=== PATIENT | male | born 1950 | race Hispanic/Latino ===

== ENCOUNTER 2024-12-02 09:51 | Day surgery (SDC) | payer MEDICARE ==
[2024-11-26 11:35] LABS: BASOPHILS % 0.4 % (0.0-1.0); EOSINOPHILS % 4.1 % (0.0-6.0); LYMPHOCYTES % 28.1 % (18.0-39.1); MONOCYTES % 8.0 % (4.4-11.3); NEUTROPHILS % 59.1 % (38.7-80.0); RED CELL DISTRIBUTION WIDTH 13.5 % (11.7-14.4)
[2024-11-26 12:26] LABS: CHOL/HDL RATIO 2.9 (3.9-4.7); EST GLOMERULAR FILTRATION RATE 68.0 ML/MIN (>=60); LDL CHOLESTEROL 33.0 MG/DL (60-130)
[~2024-12-02] VITALS: Ht 165.1 cm; Wt 68.3 kg
[2024-12-02] VITALS (17 sets, daily range): BP systolic 108–136; BP diastolic 58–84; PULSE 59–71; RESP 11–22; TEMP 97.7; O2SAT 96–100
[~2024-12-02 09:51] MED LIST: ASPIRIN81 MG PO; ATORVASTATIN CA20 MG PO; CLOPIDOGREL75 MG PO; LIPITOR20 MG PO
[2024-12-02] MEDS: SODIUM CHLORIDE 0.9% 1000ML 1,000 ML ONE (11:00)
[2024-12-02] MEDS: DIPHENHYDRAMINE HCL 25 MG CAP ONE (12:18)
[2024-12-02] MEDS: ALPRAZOLAM 0.5 MG TAB ONE (12:18)
[2024-12-02] MEDS ORDERED: NITROGLYCERIN/D5W 200 MCG/ML 250 ML ONE (13:29)
[2024-12-02] MEDS ORDERED: HEPARIN SOD/SOD CHLORIDE 2,000 ML ONE (13:29)
[2024-12-02] MEDS ORDERED: VERAPAMIL HCL 2.5 MG/ML 2 ML VIAL ONE (13:29)
[2024-12-02] MEDS ORDERED: LIDOCAINE HCL 2% LOCAL 20 ML VIAL ONE (13:29)
[2024-12-02] MEDS ORDERED: HEPARIN SOD (PORCINE) 1000 UNIT/ML 30ML ONE (13:29)
[2024-12-02] MEDS ORDERED: IOPAMIDOL 370 MG/ML 100 ML INFUS..BTL INJ ONE (13:29)
[2024-12-02] MEDS ORDERED: MIDAZOLAM HCL 2 MG/2 ML VIAL ONE (13:49)
[2024-12-02] MEDS ORDERED: FENTANYL CITRATE/PF 100MCG/2 ML INJ ONE (13:50)
[2024-12-02] MEDS ORDERED: ASPIRIN 325 MG TAB ONE (14:24)
[2024-12-02] MEDS ORDERED: PRASUGREL 10 MG TAB ONE (14:24)
== END 2024-12-02 18:30 | disposition home or self-care (01) ==
LOC: CATH LAB 09:51
PROVIDERS: ATTEND Internal Medicine Interventional Cardiology
DX: I25.110 Atherosclerotic heart disease of native coronary artery with unstable angina pectoris (principal); Z95.5 Presence of coronary angioplasty implant and graft; I73.89 Other specified peripheral vascular diseases; R09.89 Other specified symptoms and signs involving the circulatory and respiratory systems; I87.2 Venous insufficiency (chronic) (peripheral); I10 Essential (primary) hypertension; E78.5 Hyperlipidemia, unspecified; F17.200 Nicotine dependence, unspecified, uncomplicated; Z01.812 Encounter for preprocedural laboratory examination; Z79.02 Long term (current) use of antithrombotics/antiplatelets; Z79.899 Other long term (current) drug therapy
CPT/HCPCS: 93458; C9600; 36415; 76937; 80053; 80061; 83880; 85025; 92920; 92928; 99152; 99153; C1725; C1874; C1887; J1644; J2003; J2250; J7030; Q9967